=== PATIENT | female | born 2000 | race Hispanic/Latino ===

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

== ENCOUNTER 2023-12-02 09:13 | Emergency (ER) | payer OTHER, BC ==
[~2023-12-02] VITALS: Ht 152.4 cm; Wt 59.4 kg
[2023-12-02 10:18] LABS: APPEARANCE,URINE CLEAR (CLEAR); BILIRUBIN,URINE NEGATIVE (NEGATIVE); COLOR,URINE LIGHT-YELLOW (YELLOW); GLUCOSE, URINE (UA) NEGATIVE (NEGATIVE); KETONES,URINE NEGATIVE (NEGATIVE); LEUKOCYTE ESTERASE ,URINE NEGATIVE Leu/uL (NEGATIVE); NITRATE,URINE NEGATIVE (NEGATIVE); OCCULT BLOOD,URINE NEGATIVE (NEGATIVE); PROTEIN,URINE NEGATIVE (NEGATIVE); UROBILINOGEN,URINE 0.2 mg/dL (0.2-1.0)
[2023-12-02 10:20] LABS: ADD UA MICROSCOPIC NO
[2023-12-02 10:25] LABS: HCG,QUALITATIVE URINE NEGATIVE (NEGATIVE)
[2023-12-02 10:27] VITALS: BP 116/70; PULSE 55; RESP 17; O2SAT 99
== END 2023-12-02 11:23 | disposition home or self-care (01) ==
LOC: EDH 09:13
DX: S20.212A Contusion of left front wall of thorax, initial encounter (principal); S80.02XA Contusion of left knee, initial encounter; S80.01XA Contusion of right knee, initial encounter; V89.2XXA Person injured in unspecified motor-vehicle accident, traffic, initial encounter; Y93.89 Activity, other specified; Y92.488 Other paved roadways as the place of occurrence of the external cause
CPT/HCPCS: 71045; 73562; 81003; 81025; 93005